=== PATIENT | female | born 1980 | race Asian ===

== ENCOUNTER 2017-02-03 07:30 | Inpatient (IN) | payer SELFPAY ==
[~2017-02-03] VITALS: Ht 170 cm; Wt 77.0 kg
[2017-02-03] MEDS ORDERED: LR 1,000 ML IV ONE (15:21)
[2017-02-03] MEDS ORDERED: CEFAZOLIN 2 GM IVPB PREMIX 50 ML IV ONE (15:30)
[2017-02-03 15:54] LABS: BILIRUBIN,URINE NEGATIVE (NEGATIVE); BLOOD, URINE NEGATIVE (NEGATIVE); CLARITY/URINE SL HAZY (CLEAR); COLOR,URINE YELLOW (YELLOW); GLUCOSE,URINE NEGATIVE (NEGATIVE); KETONES,URINE 3+ (NEGATIVE); LEUKOCYTE ESTERASE ,URINE 3+ (NEGATIVE); NITRITE, URINE NEGATIVE (NEGATIVE); PH,URINE 6.5 (5.0-8.0); PROTEIN URINE NEGATIVE (NEGATIVE); UROBILINOGEN,URINE 0.2 (0.2-1.0)
[2017-02-03 16:00] LABS: HEMATOCRIT 33.7 % (36-48); HEMOGLOBIN 11.6 g/dL (12.0-16.0); MEAN CORPUSCULAR HEMOGLOBIN 32 pg (27-31); MEAN CORPUSCULAR HGB CONC 34 % (32-36); MEAN CORPUSCULAR VOLUME 93 fL (79.0-98.0); PLATELET COUNT (AUTO) 223 K/uL (130-430); RED BLOOD CELL COUNT(AUTO) 3.64 MIL/uL (4.2-6.2); RED CELL DISTRIBUTION WIDTH 14.1 % (9.0-15.0); WHITE BLOOD COUNT (AUTO) 7.4 K/uL (4.8-10.8)
[2017-02-03 16:19] LABS: BACTERIA,URINE MANY /HPF (None Seen); MUCUS,URINE 1+ /LPF (None Seen); WBC,URINE 20-50 /HPF (0-3)
[2017-02-03] MEDS ORDERED: CITRIC ACID/SODIUM CITRATE 30 ML UDC PO ONE (16:30)
[2017-02-03 16:42] VITALS: BP_SYST 101
[2017-02-03 16:50] LABS: BAND % (MANUAL) 17 % (0-6)
[2017-02-03 16:51] LABS: ATYPICAL LYMPHOCYTES % 2 % (0-0); BASOPHILS % (MANUAL) 0 % (0-2); EOSINOPHILS % (MANUAL) 0 % (0-7); LYMPHOCYTES % (MANUAL) 25 % (20-46); MONOCYTES % (MANUAL) 3 % (0-11)
[2017-02-03] MEDS ORDERED: LR 1,000 ML IV SCH ×2 (17:58→18:02)
[2017-02-03] MEDS ORDERED: OXYTOCIN/NORMAL SALINE 1,000 ML IV ONE ×2 (17:58→20:21)
[2017-02-03] MEDS ORDERED: ANUSOL 1 EA SUPP.RECT (PREPARATION H) RC PRN (18:00)
[2017-02-03] MEDS ORDERED: HYDROcodone/ACETAMIN 5-325 MG TAB (NORCO/ VICODIN) PO PRN ×2 (18:00)
[2017-02-03] MEDS ORDERED: TEMAZEPAM 15 MG CAPSULE PO PRN (18:00)
[2017-02-03] MEDS ORDERED: DOCUSATE SODIUM 100 MG CAPSULE PO PRN (18:00)
[2017-02-03] MEDS ORDERED: BISACODYL 10 MG/SUPPOSITORY RC PRN (18:00)
[2017-02-03] MEDS ORDERED: RHO(D) IMMUNE GLOBULIN/MALTOSE 1500 UNITS/1.3 ML (WINHRO) IM PRN (18:00)
[2017-02-03] MEDS ORDERED: SENNOSIDES/DOCUSATE SODIUM 1 TAB TABLET(SENOKOT-S) PO PRN (18:00)
[2017-02-03] MEDS ORDERED: LANOLIN 7 GM OINT. TP PRN (18:00)
[2017-02-03] MEDS ORDERED: ACETAMINOPHEN 325 MG TABLET PO PRN (18:00)
[2017-02-03] MEDS ORDERED: SIMETHICONE 80 MG TAB.CHEW PO PRN (18:00)
[2017-02-03] MEDS ORDERED: MEASLES,MUMPS&RUBELLA VACC/PF 12500 UNIT/0.5 ML VIAL SUBQ PRN (18:00)
[2017-02-03] MEDS ORDERED: HYDROmorphone 1 MG INJ. 1 MG/ML AMPUL IVP PRN ×2 (18:15)
[2017-02-03] MEDS ORDERED: NALOXONE HCL 0.4 MG/ML AMP (NARCAN) IVP PRN (18:15)
[2017-02-03] MEDS ORDERED: ePHEDrine sulfate 50 MG/ML VIAL IVP PRN (18:15)
[2017-02-03] MEDS ORDERED: MEPERIDINE HCL/PF 25 MG/ML DISP.SYRIN IVP PRN ×2 (18:15)
[2017-02-03] MEDS ORDERED: MORPHINE SULFATE 10MG/10ML PF AMP SP SCH (18:15)
[2017-02-03] MEDS ORDERED: HYDROmorphone 2 MG/ML VIAL IVP PRN ×2 (18:15)
[2017-02-03] MEDS ORDERED: DIPHENHYDRAMINE INJ 50 MG/ML VIAL IVP PRN (18:15)
[2017-02-03] MEDS ORDERED: ONDANSETRON HCL 4 MG/2 ML VIAL IVP PRN ×2 (18:15)
[2017-02-03] MEDS ORDERED: NALBUPHINE HCL 10 MG/ML AMP IVP PRN (18:15)
[2017-02-03 18:48] VITALS: BP_SYST 116
[2017-02-03] MEDS ORDERED: NACL 0.9% 1,000 ML IV ONE (23:00)
[2017-02-04] MEDS: IBUPROFEN 600 MG TABLET PO SCH ×4 (05:58→23:54)
[2017-02-04 07:39] LABS: BASOPHILS % (AUTO) 0.2 % (0.0-2.0); EOSINOPHILS % (AUTO) 0.1 % (0.0-4.0); HEMATOCRIT 30.8 % (36-48); HEMOGLOBIN 10.4 g/dL (12.0-16.0); LYMPHOCYTES # (AUTO) 1.5 K/uL (1.0-5.5); LYMPHOCYTES % (AUTO) 14.9 % (20.5-51.5); MEAN CORPUSCULAR HEMOGLOBIN 32 pg (27-31); MEAN CORPUSCULAR HGB CONC 34 % (32-36); MEAN CORPUSCULAR VOLUME 94 fL (79.0-98.0); MONOCYTES # (AUTO) 0.5 K/uL (0.0-1.0); MONOCYTES % (AUTO) 5.5 % (1.7-9.3); NEUTROPHILS % (AUTO) 79.3 % (40.0-70.0); PLATELET COUNT (AUTO) 193 K/uL (130-430); RED BLOOD CELL COUNT(AUTO) 3.26 MIL/uL (4.2-6.2)
[2017-02-05] MEDS: IBUPROFEN 600 MG TABLET PO SCH ×2 (06:22→12:10)
[2017-02-05] MEDS ORDERED: MILK OF MAGNESIA 30 ML UDC PO ONE (08:30)
== END 2017-02-05 15:25 | disposition home or self-care (01) | DRG 766 ==
LOC: SPU 15:00
PROVIDERS: ADMIT Obstetrics & Gynecology; ATTEND Obstetrics & Gynecology
PROC: 10D00Z1 Extraction of Products of Conception, Low, Open Approach (ICD-10-PCS; principal; 2017-02-03 17:30)
DX: O34.211 Maternal care for low transverse scar from previous cesarean delivery (principal); Z37.0 Single live birth; Z3A.39 39 weeks gestation of pregnancy
CPT/HCPCS: 36415; 81000-TC; 85007; 85025; 85027; 86592; 86886; 86900; 86901; 94760; J0690; J2590; J7030; J7120